=== PATIENT | male | born 1945 | race Caucasian/White ===

== ENCOUNTER 2017-09-18 22:03 | Emergency (ER) | payer MEDICARE, OTHER ==
[~2017-09-18] VITALS: Ht 190.5 cm; Wt 99.2 kg
[2017-09-18 22:05] VITALS: BP 151/77
== END 2017-09-18 23:02 | disposition home or self-care (01) ==
LOC: ED 22:40
DX: M67.432 Ganglion, left wrist (principal); E78.00 Pure hypercholesterolemia, unspecified
CPT/HCPCS: 99284